=== PATIENT | female | born 1950 | race Caucasian/White ===

== ENCOUNTER → 2018-02-07 | Outpatient (CLI) | payer OTHER ==
--- NOTE | ~2018-02-07 | EKG ---
[address] [address] ELECTROCARDIOGRAM REPORT Name: RADHA ADDISON Room #: REG CLI [facility].#: [id number] Admission: 02/07/18 Attend Phys: Guerrero Leiva MD Discharge: Date of : 52 Report #: [id number] THIS REPORT FOR: //name// [facility] Test Date: 2018-02-07 Test Time: 14:21:07 Pat Name: RADHA ADDISON Department: Room: Gender: F Configuration Technician: Meño CEDILLO : 1950 Requested By: Guerrero Leiva Order Number: [id number] MD: Joseluis Sarabia Measurements Intervals [place] Rate: 54 P: 41 [place]: 142 QRS: -15 QRSD: 102 T: -23 QT: 416 QTc: 395 Interpretive Statements Sinus rhythm Borderline left axis deviation Borderline T abnormalities, inferior leads No previous ECG available for comparison Electronically Signed On 02-07-2018 17:01:27 CDT by Joseluis Sarabia [email or web address] <ELECTRONICALLY SIGNED> By: Joseluis Sarabia MD 02/07/18 1701 142 142 Joseluis Sarabia MD /EDNA
== END ==
LOC: CV 13:58
DX: Z01.812 Encounter for preprocedural laboratory examination (principal)